=== PATIENT | female | born 1980 | race Two or more races ===

== ENCOUNTER 2017-02-07 08:38 | Emergency (ER) | payer OTHER ==
[~2017-02-07] VITALS: Ht 160 cm; Wt 136.1 kg
--- NOTE | 2017-02-07 08:45 | NUR ---
PATIENT PRESENTS TO ER C/O UNHEALING WOUND TO BILATERAL LOWER LEG, +SWELLING. PATIENT'S A/OX 4. BREATHING EVEN AND UNLABORED. NO SOB. VITALS STABLE. SAFETY AND COMFORT MEASURES IN PLACE. AWAITING MD ORDERS.
--- NOTE | 2017-02-07 09:20 | NUR ---
WOUND CARE PERFORMED PER MD ORDERS.
[2017-02-07 09:33] VITALS: BP 138/86
--- NOTE | 2017-02-07 09:34 | NUR ---
Patient discharged to home in stable condition. Prescription handed to patient. Written and verbal after care instructions given. Patient verbalizes understanding of instruction.
== END 2017-02-07 09:34 | disposition home or self-care (01) ==
LOC: ER 08:42
DX: L03.115 Cellulitis of right lower limb (principal); L03.116 Cellulitis of left lower limb; I10 Essential (primary) hypertension; F32.9 Major depressive disorder, single episode, unspecified; F41.9 Anxiety disorder, unspecified
CPT/HCPCS: A4606; A6403; Z7610